=== PATIENT | male | born 1960 | race Caucasian/White ===

== ENCOUNTER 2018-08-22 02:09 | Emergency (ER) | payer MEDICAID, SELFPAY ==
[~2018-08-22] VITALS: Ht 160 cm; Wt 79.0 kg
[2018-08-22 02:13] VITALS: BP 112/82
[2018-08-22] MEDS ORDERED: DIPH,PERTUSS(ACELL),TET VAC/PF 0.5 ML IM-VACC ONE ×2 (02:30→02:35)
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
--- NOTE | 2018-08-22 03:06 | NUR ---
[employer] at bedside
--- NOTE | 2018-08-22 03:42 | NUR ---
Pt to be discharged, [employer] to return with patients belongings
[2018-08-22] MEDS ORDERED: CLINDAMYCIN 300 MG CAPSULE ONE (03:54)
[2018-08-22] MEDS ORDERED: CLINDAMYCIN 300 MG CAPSULE PO ONE (04:00)
== END 2018-08-22 04:22 | disposition home or self-care (01) ==
LOC: ED 04:11
DX: S00.31XA Abrasion of nose, initial encounter (principal); S00.81XA Abrasion of other part of head, initial encounter; S61.451A Open bite of right hand, initial encounter; W50.3XXA Accidental bite by another person, initial encounter; Y93.89 Activity, other specified; Y92.009 Unspecified place in unspecified non-institutional (private) residence as the place of occurrence of the external cause; Y99.8 Other external cause status; F17.210 Nicotine dependence, cigarettes, uncomplicated
CPT/HCPCS: 90471; 90715

== ENCOUNTER 2019-06-17 14:27 | Emergency (ER) | payer SELFPAY ==
[~2019-06-17] VITALS: Ht 160 cm; Wt 69.6 kg
[2019-06-17 14:42] VITALS: BP 132/83
--- NOTE | 2019-06-17 14:49 | NUR ---
Pt to room from triage.
== END 2019-06-17 15:34 | disposition home or self-care (01) ==
LOC: ED 15:19
DX: K08.89 Other specified disorders of teeth and supporting structures (principal); F17.200 Nicotine dependence, unspecified, uncomplicated
CPT/HCPCS: 99283

== ENCOUNTER 2019-09-16 20:03 | Emergency (ER) | payer SELFPAY ==
[~2019-09-16] VITALS: Ht 160 cm; Wt 73.0 kg
--- NOTE | 2019-09-16 20:28 | NUR ---
PT RESTING ON GURNEY, MONITORS APPLIED, SIDERAILS UP X2, CALL LIGHT WITHIN REACH. AWAITING ERP EVAL AND ORDERS
[2019-09-16] MEDS ORDERED: MECLIZINE CHEWABLE 25 MG TAB ONE (21:22)
--- NOTE | 2019-09-16 21:25 | NUR ---
PT MEDICATED PER MAY. AWAITING CT AND LABS
[2019-09-16] MEDS ORDERED: MECLIZINE CHEWABLE 25 MG TAB PO ONE (21:30)
[2019-09-16 21:36] LABS: BASOPHILS # (AUTO) 0.02 x10^3/uL (0-0.1); BASOPHILS % (AUTO) 0 % (0-1); EOSINOPHILS # (AUTO) 0.14 x10^3/uL (0-0.4); EOSINOPHILS % (AUTO) 2 % (1-7); LYMPHOCYTES # (AUTO) 2.19 x10^3/uL (1-3.4); LYMPHOCYTES % (AUTO) 26 % (22-44); MD NO; MEAN CORPUSCULAR HEMOGLOBIN 29.6 pg (27.5-34.5); MEAN CORPUSCULAR HGB CONC 33.7 g/dL (33.2-36.2); MEAN CORPUSCULAR VOLUME 87.9 fL (81-97); MEAN PLATELET VOLUME 8.4 fL (7.4-10.4); MONOCYTES # (AUTO) 0.69 x10^3/uL (0.2-0.8); MONOCYTES % (AUTO) 8 % (2-9); NEUTROPHILS # (AUTO) 5.47 x10^3/uL (1.8-6.8); NEUTROPHILS % (AUTO) 64 % (42-75); PLATELET COUNT 231 x10^3/uL (130-400); RED BLOOD COUNT 5.91 x10^6/uL (4.38-5.82); RED CELL DISTRIBUTION WIDTH 14.4 % (9.4-14.8)
[2019-09-16 21:45] LABS: ALANINE AMINOTRANSFERASE 35 U/L (12-78); ALBUMIN 3.6 g/dL (3.4-5.0); ANION GAP 7 mmol/L (5-15); CALCIUM 8.5 mg/dL (8.5-10.1); CHLORIDE 109 mmol/L (98-107); CREATININE 0.99 mg/dL (0.7-1.3)
--- NOTE | 2019-09-16 21:45 | NUR ---
PT RESTING ON GURNEY, MONITORS IN PLACE, CALL LIGHT WITHIN REACH. AWAITING CT
[2019-09-16 21:47] LABS: ALKALINE PHOSPHATASE 72 U/L (45-117); BILIRUBIN,TOTAL 0.3 mg/dL (0.2-1.0); TOTAL PROTEIN 7.3 g/dL (6.4-8.2)
[2019-09-16 23:12] VITALS: BP 131/90
== END 2019-09-16 23:36 | disposition home or self-care (01) ==
LOC: ED 22:58
DX: R42 Dizziness and giddiness (principal); F17.200 Nicotine dependence, unspecified, uncomplicated
CPT/HCPCS: 36415; 70450; 80053; 85025; 93005; 99285